=== PATIENT | male | born 2000 | race Caucasian/White ===

== ENCOUNTER 2021-03-22 08:09 | Emergency (ER) | payer SELFPAY ==
[~2021-03-22] VITALS: Ht 172.7 cm; Wt 55.5 kg
[2021-03-22 08:23] VITALS: BP 109/52
--- NOTE | 2021-03-22 08:37 | PHYS DOC ---
Past History Past Surgical History: Tonsillectomy Alcohol Use: None General Adult EDM: Chief Complaint: ANKLE PROBLEM HPI: HPI: Patient is a 20 year old male who presents with left ankle pain. Started on Monday after he was moving a seat in a cargo van. The seat shifted him hit the lateral aspect of the ankle. Has been having pain over the lateral ankle since. Not in a significant amount of swelling. He is having difficulty with walking. Walking on his tiptoes to avoid pain. Worse with walking. No alleviating factors. Review of Systems: Review of Systems: Constitutional: Denies fever or chills Eyes: Denies change in visual acuity HENT: Denies nasal congestion or sore throat Respiratory: Denies cough or shortness of breath Cardiovascular: Denies chest pain or edema GI: Denies abdominal pain, nausea, vomiting, bloody stools or diarrhea : Denies dysuria Musculoskeletal: + L ankle pain Integument: Denies rash Neurologic: Denies headache, focal weakness or sensory changes Endocrine: Denies polyuria or polydipsia Lymphatic: Denies swollen glands Psychiatric: Denies depression or anxiety Family History: Family History: no pertienent family hx Physical Exam: PE: Constitutional: Well developed, well nourished, no acute distress, non-toxic appearance. [] HENT: Normocephalic, atraumatic, bilateral external ears normal, oropharynx moist, no oral exudates, nose normal. [] Eyes: PERRLA, EOMI, conjunctiva normal, no discharge. [] Neck: Normal range of motion, no tenderness, supple, no stridor. [] Cardiovascular:Heart rate regular rhythm, no murmur [] Lungs & Thorax: Bilateral breath sounds clear to auscultation [] Abdomen: Bowel sounds normal, soft, no tenderness, no masses, no pulsatile masses. [] Skin: Warm, dry, no erythema, no rash. [] Back: No tenderness, no CVA tenderness. [] Extremities: No evidence of swelling to the left ankle. Does have some tenderness to posterior palpation of the medial and lateral malleoli. Good range of motion that is painless at the ankle joint with flexion, extension, and inversion and eversion.] Neurologic: Alert and oriented X 3, normal motor function, normal sensory function, no focal deficits noted. [] Psychologic: Affect normal, judgement normal, mood normal. [] Current Patient Data: Vital Signs: Vital Signs Date Time Temp Pulse Resp B/P (MAP) Pulse Ox O2 Delivery O2 Flow Rate FiO2 03/22/21 08:23 97.5 63 15 109/52 98 Room Air EKG: EKG: [] Radiology/Procedures: Radiology/Procedures: [address] [id number] IMAGING REPORT Signed PATIENT: VICKY CRAWFORD SACCOUNT: [id number] : 2000 LOCATION: ER AGE: 20 SEX: M EXAM STATUS: REG ER ORD. PHYSICIAN: ЕКАТЕРИНА OLIVARES MD REASON: traumatic ankle pain. Pain worst over distal fibula. PROCEDURE: ANKLE LEFT 3V EXAM: 3 views of the left ankle DATE: 03/22/2021 8:40 AM INDICATION: Reason: traumatic ankle pain. Pain worst over distal fibula. / Spl. Instructions: / History: COMPARISON: No Prior FINDINGS: No acute fracture or dislocation. Ankle mortise is congruent. Talar dome is intact. Joint spaces are preserved without significant degenerative/proliferative change. No significant soft tissue swelling. Focal lucency within the calcaneus may represent a lipoma. IMPRESSION: 1. No acute fracture or dislocation. 2. Focal lucency within the calcaneus may represent a lipoma. Electronically signed by: Leo Kang MD (03/22/2021 8:59 AM) [id number] DICTATED AND SIGNED BY: LEO KANG MD DATE: 03/22/21 0858 CC: ЕКАТЕРИНА OLIVARES MD; PCP,NO ~MTH0 0 [] Heart Score: C/O Chest Pain: N/A Risk Factors: Risk Factors: DM, Current or recent (<one month) smoker, HTN, HLP, family history of CAD, obesity. Risk Scores: Score 0 - 3: 2.5% MACE over next 6 weeks - Discharge Home Score 4 - 6: 20.3% MACE over next 6 weeks - Admit for Clinical Observation Score 7 - 10: 72.7% MACE over next 6 weeks - Early Invasive Strategies Course & Med Decision Making: Course & Med Decision Making Pertinent Labs and Imaging studies reviewed. (See chart for details) Patient presents with traumatic left ankle pain after a car seat fell on his ankle. Has been able to bear weight. On exam does not have any notable swelling. Does have some posterior tenderness to the lateral and medial malleoli with palpation. Ankle x-ray obtained did not show any fracture. Will advise conservative management with Tylenol, ibuprofen, crutches as needed. We will asked to follow-up with outpatient providers. Srinivasa Disclaimer: Dragon Disclaimer: This electronic medical record was generated, in whole or in part, using a voice recognition dictation system. Departure Departure: Disposition: HOME / SELF CARE / HOMELESS Condition: STABLE Referrals: PCP,NO (PCP) Since you do not have a PCP, please call the number for the [facility] at [phone]. Additional Instructions: Please call the number above to get set up with the PCP. Your x-ray was reassuring. There is no signs of fracture or dislocation. For pain tylenol and ibuprofen are best used on a schedule. Please alternate between the two. -Tylenol 1000 mg every 6 hours (do not exceed 4000 mg in one day) -Ibuprofen 400 mg every 6 hours. Take with food. Do not take for more than 1 week. You can use crutches as needed. You can purchase these from a drugstore. ЕКАТЕРИНА OLIVARES MD Mar 22, 2021 08:37
--- NOTE | 2021-03-22 09:01 | RAD ---
EXAM: 3 views of the left ankle DATE: 03/22/2021 8:40 AM INDICATION: Reason: traumatic ankle pain. Pain worst over distal fibula. / Spl. Instructions: / Hist ory: COMPARISON: No Prior FINDINGS: No acute fracture or dislocation. Ankle mortise is congruent. Talar dome is intact. Joint spaces are preserved without significant degenerative/proliferative change. No significant soft tissue swelling. Focal lucency within the calcaneus may represent a lipoma. IMPRESSION: 1. No acute fracture or dislocation. 2. Focal lucency within the calcaneus may represent a lipoma. Electronically signed by: Leo Kang MD (03/22/2021 8:59 AM) [id number]
== END 2021-03-22 09:52 | disposition home or self-care (01) ==
LOC: ER 08:09
DX: M25.572 Pain in left ankle and joints of left foot (principal); G89.11 Acute pain due to trauma; W20.8XXA Other cause of strike by thrown, projected or falling object, initial encounter; Y93.89 Activity, other specified; Y92.89 Other specified places as the place of occurrence of the external cause; Y99.8 Other external cause status
CPT/HCPCS: 73610; 99283